=== PATIENT | female | born 1960 | race Caucasian/White ===

== ENCOUNTER 2024-09-26 07:59 | Outpatient (REF) | payer BC, SELFPAY | END 2024-09-26 08:00 | disposition home or self-care (01) | LOC: HO.LAB 07:59 | PROVIDERS: PCP Pediatrics; Visit Provider Psychiatry & Neurology Psychiatry | DX: G31.84 Mild cognitive impairment of uncertain or unknown etiology (principal) | CPT/HCPCS: 82542 ==